=== PATIENT | female | born 1960 | race Caucasian/White ===

== ENCOUNTER 2018-10-20 12:50 | Emergency (ER) | payer BC ==
--- NOTE | 2018-10-20 14:18 | UC ---
Eye Complaint HPI - HPI Summary HPI Summary: Pt has 9 year old at home with pink eye who is on antibiotic eye drops. Pt started experiencing some crustiness to her right eye today. - History of Current Complaint Stated Complaint: BILATERAL EYE CONCERN Time Seen by Provider: 10/20/18 14:04 Hx Obtained From: Patient Hx Last Menstrual Period: has now ?: No Onset/Duration: Gradual Onset Timing: Constant Severity Initially: Mild Severity Currently: Mild Location of Injury: Other - No injury Aggravating Factor(s): Nothing Alleviating Factor(s): Nothing Associated Signs And Symptoms: Positive: Drainage (Purulent) - yellow crustiness today - Allergies/Home Medications Allergies/Adverse Reactions: Allergies Allergy/AdvReac Type Severity Reaction Status Date / Time MS Indomethacin Allergy Intermediate Hives Verified 04/14/14 18:55 [From Indocin] PMH/Surg Hx/FS Hx/Imm Hx Previously Healthy: Yes Endocrine History: Diabetes Cardiovascular History: Hypertension - Surgical History Surgical History: None - Social History Lives: With Family Alcohol Use: None Substance Use Type: None Smoking Status (MU): Never Smoked Tobacco Review of Systems All Other Systems Reviewed And Are Negative: Yes Eyes: Positive: Drainage - crustiness this morning. Negative: Eye Redness Is Patient Immunocompromised?: No Physical Exam Triage Information Reviewed: Yes Appearance: Well-Appearing, No Pain Distress, Well-Nourished Vital Signs Reviewed: Yes Eyes: Positive: Conjunctiva Clear. Negative: Discharge ENT: Positive: Pharynx normal, TMs normal, Uvula midline Eye Complaint Course/Dx - Course Course Of Treatment: I don't think pt has a bacterial conjunctivitis at this time but with 2 children having it and her stating she has crustiness in the morning I will give her a "wait and see" Rx for tobramycin eye drops to start if symptoms worsen. Pt is in agreement with this. - Differential Dx/Diagnosis Provider Diagnosis: Conjunctivitis Discharge - Sign-Out/Discharge Documenting (check all that apply): Patient Departure All imaging exams completed and their final reports reviewed: No Studies - Discharge Plan Condition: Fair Disposition: HOME Prescriptions: Tobramycin 0.3% OPHTH.DRU* 1 drop LEFT EYE Q4H 7 Days #1 btl Patient Education Materials: Conjunctivitis (ED) Referrals: Juliana Bass PA [Primary Care Provider] - Additional Instructions: At this point in time you can wait to start the eye drops only if your eye becomes more red with pus drainage. - Billing Disposition and Condition Condition: FAIR Disposition: Home - Attestation Statements Provider Attestation: Per institutional requirements, I have reviewed the chart, however, I was not consulted specifically or made aware of this patient by the midlevel provider. I did not personally evaluate, interact with , or disposition this patient.
[2018-10-20 14:42] VITALS: BP 160/55
== END 2018-10-20 14:47 | disposition home or self-care (01) ==
LOC: UCCORT 12:50
DX: H10.9 Unspecified conjunctivitis (principal); E11.9 Type 2 diabetes mellitus without complications; I10 Essential (primary) hypertension
CPT/HCPCS: 99202; G0463

== ENCOUNTER 2019-06-07 13:58 | Emergency (ER) | payer BC ==
[2019-06-07 16:04] VITALS: BP 140/80
--- NOTE | 2019-06-07 16:12 | UC ---
Throat Pain/Nasal Javed HPI - HPI Summary HPI Summary: 59-year-old woman comes in with chief complaint of 3 weeks of upper respiratory tract infection and sinusitis symptoms. Patient has yellow-green rhinorrhea and frontal sinus pressure. In the last day she started getting upper molar pain. Does have postnasal drip. Patient does get a lot of rhinorrhea when she has steam in the shower. No chest congestion. - History of Current Complaint Chief Complaint: UCGeneralIllness Stated Complaint: CONGESTION COUGH Time Seen by Provider: 06/07/19 15:53 Hx Last Menstrual Period: has now Pain Intensity: 0 - Allergies/Home Medications Allergies/Adverse Reactions: Allergies Allergy/AdvReac Type Severity Reaction Status Date / Time indomethacin [From Indocin] Allergy Intermediate Hives Verified 06/07/19 16:04 Home Medications: Home Medications Aspirin 81 mg PO DAILY 06/07/19 [History Confirmed 06/07/19] Atorvastatin* [Lipitor*] 80 mg PO 1700 06/07/19 [History Confirmed 06/07/19] Canagliflozin (NF) [Invokana (NF)] 300 mg PO DAILY 06/07/19 [History Confirmed 06/07/19] Nortriptyline CAP* [Nortriptylline CAP*] 30 mg PO DAILY 06/07/19 [History Confirmed 06/07/19] Topiramate TAB(*) [Topamax 25 MG tab] 25 mg PO DAILY 06/07/19 [History Confirmed 06/07/19] carvediloL [Carvedilol] 6.25 mg PO DAILY 06/07/19 [History Confirmed 06/07/19] PMH/Surg Hx/FS Hx/Imm Hx Previously Healthy: Yes Endocrine History: Diabetes, Dyslipidemia Cardiovascular History: Hypertension - Surgical History Surgical History: None - Family History Known Family History: Positive: Non-Contributory - Social History Alcohol Use: None Substance Use Type: None Smoking Status (MU): Never Smoked Tobacco Review of Systems All Other Systems Reviewed And Are Negative: Yes Constitutional: Positive: Other - SEE HPI Skin: Positive: Negative Eyes: Positive: Negative ENT: Positive: Sore Throat, Nasal Discharge, Sinus Congestion, Sinus Pain/ Tenderness Respiratory: Positive: Cough Cardiovascular: Positive: Negative Gastrointestinal: Positive: Negative Motor: Positive: Negative Neurovascular: Positive: Negative Musculoskeletal: Positive: Negative Neurological: Positive: Negative Psychological: Positive: Negative Is Patient Immunocompromised?: No Physical Exam Triage Information Reviewed: Yes Appearance: No Pain Distress, Well-Nourished, Ill-Appearing - MILD Vital Signs: Initial Vital Signs Temp 98.0 F 06/07/19 16:00 Pulse 84 06/07/19 16:00 Resp 20 06/07/19 16:00 BP 140/80 06/07/19 16:00 Pulse Ox 100 06/07/19 16:00 Vital Signs Reviewed: Yes Eye Exam: Normal Eyes: Positive: Conjunctiva Clear ENT: Positive: Pharyngeal erythema, Nasal congestion, Nasal drainage, TMs normal , Sinus tenderness Neck: Positive: Supple Respiratory: Positive: Lungs clear, Normal breath sounds, No respiratory distress Cardiovascular: Positive: RRR Musculoskeletal: Positive: Strength Intact, ROM Intact Neurological: Positive: Alert, Muscle Tone Normal Psychological: Positive: Normal Response To Family, Age Appropriate Behavior Skin Exam: Normal Throat Pain/Nasal Course/Dx - Differential Dx/Diagnosis Provider Diagnosis: Sinusitis Discharge ED - Sign-Out/Discharge Documenting (check all that apply): Patient Departure All imaging exams completed and their final reports reviewed: No Studies - Discharge Plan Condition: Stable Disposition: HOME Prescriptions: Amoxicillin/Clavulanate TAB* [Augmentin TAB 875*] 875 mg PO BID #20 tab Fluticasone NASAL SPRAY 50MCG* [Flonase NASAL SPRAY 50MCG*] 2 spray BOTH NARES DAILY #1 btl Patient Education Materials: Sinusitis (ED) Referrals: Juliana Bass PA [Primary Care Provider] - Additional Instructions: FOLLOW UP WITH YOUR DOCTOR IF NOT COMPLETELY IMPROVED. GET REEVALUATED SOONER IF NOT IMPROVED OR WORSE OR ANY QUESTIONS OR CONCERNS. - Billing Disposition and Condition Condition: STABLE Disposition: Home
== END 2019-06-07 16:18 | disposition home or self-care (01) ==
LOC: UCCORT 13:58
DX: J32.9 Chronic sinusitis, unspecified (principal); E11.9 Type 2 diabetes mellitus without complications; I10 Essential (primary) hypertension; E78.5 Hyperlipidemia, unspecified; Z79.82 Long term (current) use of aspirin; Z88.6 Allergy status to analgesic agent; Z79.899 Other long term (current) drug therapy; Z79.84 Long term (current) use of oral hypoglycemic drugs
CPT/HCPCS: 99212; G0463